=== PATIENT | male | born 1975 | race Caucasian/White ===

== ENCOUNTER 2018-03-09 12:08 | Emergency (ER) | payer MEDICAID ==
[~2018-03-09 12:08] MED LIST: CLI150 PO; CYC10 PO; CYCL10TA29 PO; HYDR-3087 PO; HYDR-3377 PO; IBUP-1618 PO; KET10 PO; LOR5 PO; LOR5/325 PO; MEL7.5 GT
[2018-03-09] MEDS ORDERED: NAPR220C12 PO (12:20)
--- NOTE | 2018-03-09 12:24 | ER Report ---
History and Physical Time Seen By MD: 12:24 Hx. of Stated Complaint: severe body aches, runny nose and mucus, nausea and diarrhea HPI/ROS CHIEF COMPLAINT: Diarrhea, sinus congestion, cough HISTORY OF PRESENT ILLNESS: 42-year-old male patient presents to emergency room with complaint of diarrhea, sinus congestion and cough. Patient states this been going on since this morning. States he does have some body aches, especially his back and his neck. He states he's not had a fever. He states he did take some medicine for the diarrhea and that seems to have helped. He states that he has not had a fever. He states he does have a little bit of sore throat in addition to the cough and sinus congestion. Patient has not had a flu shot this year. Patient is concerned that he may have influenza. Allergies: Uncoded Allergies: eggs (Adverse Reaction, Mild, 03/09/18) diarrhea Home Meds Reported Medications Naproxen Sodium (ALEVE) 220 Mg Capsule, 220 MG PO TID, CAPSULE 03/09/18 Discontinued Reported Medications Clindamycin Hcl (Cleocin) 150 Mg Cap, 300 MG PO TID, #21 10/18/12 Hydrocodone Bit/Acetaminophen (Lortab 7.5-650 Tab) 7.5 Mg/650 Mg Tab, 1 TAB PO Q6H PRN, #15 10/18/12 [None] No Conflict Check, 0 Refills 03/18/10 Discontinued Scripts Hydrocodone Bit/Acetaminophen (HYDROCODON-ACETAMINOPHEN 5-325) 1 Each Tablet, 1 EACH PO Q4-6H, #14 TAKE ONE TABLET BY MOUTH EVERY 4-6 HOURS NEEDED FOR PAIN Prov:SANDY SERNA NP 09/17/13 Ketorolac Tromethamine (KETOROLAC TROMETHAMINE) 10 Mg Tab, 10 MG PO TID, #12 TAB TAKE ONE TABLET BY MOUTH 3 TIMES A DAY FOR PAIN. Prov:SANDY SERNA NP 09/17/13 Cyclobenzaprine Hcl (CYCLOBENZAPRINE HCL) 10 Mg Tablet, 10 MG PO TID, #9 TAB TAKE 1 TABLET BY MOUTH THREE TIMES A DAY Prov:SANDY SERNA NP 09/17/13 Past Medical/Surgical History Patient has a past medical history of angina, reflux, back strain, alcohol use. Patient has surgical history of appendectomy. Reviewed Nurses Notes: Yes Hx Smoking: Yes Smoking Status: Heavy Tobacco Smoker Exposure to Second Hand Smoke?: Yes Hx Substance Use Disorder: No Hx Alcohol Use: Yes (twice a week) Constitutional Vital Sign - Last 24 Hours 03/09/18 03/09/18 03/09/18 03/09/18 12:08 12:14 12:15 12:38 Temp 98.1 Pulse ??? 91 ??? Resp 20 B/P (MAP) 130/87 130/87 (101) Pulse Ox 94 O2 Delivery Room Air 03/09/18 03/09/18 12:53 13:00 Temp 98.1 Pulse ??? B/P (MAP) 130/81 (97) Physical Exam General Appearance: The patient is alert, has no immediate need for airway protection and no current signs of toxicity. ENT: Mucosal membranes are moist, posterior pharynx slightly erythematous. Respiratory: Chest is non tender, lungs are clear to auscultation. Cardiac: regular rate and rhythm Gastrointestinal: Abdomen is soft and tender in the periumbilical region, no masses, bowel sounds are hyperactive. Musculoskeletal: Neck: Neck is supple and non tender. Extremities have full range of motion and are non tender. Skin: No rashes or lesions. DIFFERENTIAL DIAGNOSIS: After history and physical exam differential diagnosis was considered for gastroenteritis, viral syndrome, upper respiratory infection, influenza. Medical Decision Making Data Points Laboratory Hematology Test 03/09/18 12:29 Influenza Virus Type A (PCR) Negative (NEGATIVE) Influenza Virus Type B (PCR) Negative (NEGATIVE) Chemistry Test 03/09/18 12:29 Influenza Virus Type A (PCR) Negative (NEGATIVE) Influenza Virus Type B (PCR) Negative (NEGATIVE) ED Course/Re-evaluation ED Course Patient was admitted to an exam room, history of physical or pain. Differential diagnoses were considered. On examination lungs are clear, heart is regular, abdomen soft with periumbilical tenderness. Bowel sounds were hyperactive. An influenza screen was done which was negative. I believe the patient likely has a viral syndrome, which is resulting in the diarrhea as well as the body aches. We will go ahead and discharge him home at this time. He is to increase his fluid intake, he is to take medication as needed for diarrhea. He is to get plenty of rest. I did encourage him to go on a clear liquid diet for the next 24 hours. He is return to the emergency room if condition worsens. He is to follow-up with his primary care provider if condition persists. Patient verbalized understanding and agreement with plan. Decision to Disposition Date: Mar 09, 2018 Decision to Disposition Time: 13:21 Depart Departure Latest Vital Signs Vital Signs Date Time Temp Pulse Resp B/P (MAP) Pulse Ox O2 Delivery O2 Flow Rate FiO2 03/09/18 13:00 98.1 130/81 (97) 03/09/18 12:53 ??? 03/09/18 12:14 20 94 Room Air Impression: Primary Impression: Gastroenteritis Condition: Improved Disposition: HOME OR SELF-CARE Patient Instructions: Gastroenteritis (ED) Additional Instructions: Increase fluid intake. Clear liquid diet for the next 24-48 hours. After that you may advance diet as tolerated starting with complex carbohydrates; rice, bread or pasta. Follow up with your primary care provider in the next week. Return to the ER if condition worsens. You may take over the counter Pepto Bismol as needed for cramping, diarrhea and discomfort. DEBBIE HERNANDEZ Mar 09, 2018 12:24
[2018-03-09 13:00] VITALS: BP 130/81
== END 2018-03-09 13:15 | disposition home or self-care (01) ==
LOC: ER 12:41
DX: K52.9 Noninfective gastroenteritis and colitis, unspecified (principal)
CPT/HCPCS: 87502; 99282